=== PATIENT | male | born 1965 | race Caucasian/White ===

== ENCOUNTER → 2021-02-13 | Outpatient (CLI) | payer OTHER ==
[~2021-02-13] MED LIST: COLCHICINE0.6 MG PO; LISINOPRIL40 MG PO; MELOXICAM7.5 MG PO; NORVASC 5 MG TAB5 MG PO
== END ==
LOC: KOH-I 14:38
DX: M54.2 Cervicalgia (principal); M79.671 Pain in right foot; M47.812 Spondylosis without myelopathy or radiculopathy, cervical region
CPT/HCPCS: 72040; 73620

== ENCOUNTER → 2021-05-15 | Outpatient (CLI) | payer OTHER | LOC: KOH-I 13:58 | DX: M79.672 Pain in left foot (principal); M79.89 Other specified soft tissue disorders | CPT/HCPCS: 73630 ==